=== PATIENT | male | born 1995 | race American Indian/Alaskan Native ===

== ENCOUNTER 2016-12-02 19:05 | Emergency (ER) | payer SELFPAY ==
[2016-12-02 20:43] LABS: Basophils % (Auto) 0.5 % (0.0-1.8); Eosinophils % (Auto) 0.1 % (0.0-4.3); Hemoglobin 15.5 gm/dl (11.8-15.2); Mean Corpuscular HGB Conc 33 % (32-34); Mean Corpuscular Hemoglobin 29 pg (28-32); Mean Corpuscular Volume 89 fl (84-94); Platelet Count 205 K/mm3 (140-440); Red Blood Count 5.29 M/mm3 (3.65-5.03); Red Cell Distribution Width 12.9 % (13.2-15.2); White Blood Count 7.1 K/mm3 (4.5-11.0)
[2016-12-02 21:04] LABS: Anion Gap 17 mmol/L; BUN/Creatinine Ratio 13.33; Blood Urea Nitrogen 12 mg/dL (9-20); Calcium 9.2 mg/dL (8.4-10.2); Carbon Dioxide 28 mmol/L (22-30); Chloride 102.2 mmol/L (98-107); Glucose 93 mg/dL (75-100); Potassium 4.5 mmol/L (3.6-5.0); Sodium 143 mmol/L (137-145)
[2016-12-02 22:29] LABS: Bilirubin,Urine NEG (Negative); Blood,Urine NEG (Negative); Ketones,Urine TR mg/dL (Negative); Leukocyte Esterase,Urine NEG (Negative); Mucus,Urine 3+ /HPF; Nitrite,Urine NEG (Negative); Protein,Urine <15 mg/dL mg/dL (Negative); WBC,Urine < 1.0 /HPF (0.0-6.0)
[2016-12-03] MEDS ORDERED: ZOFRAN ODT PO ONE (00:51)
[2016-12-03] MEDS ORDERED: NORCO 7.5/325 PO ONE (00:51)
--- NOTE | 2016-12-03 00:53 | Emergency Department Report ---
HPI - General Chief Complaint: Chest Pain Time Seen by Provider: 12/03/16 00:40 - HPI HPI: The patient is a 21-year-old male presents for evaluation of chest pain. The patient reports constant chest pain since 5 PM, 8/10 in severity, sharp in quality, exacerbated with movement of the upper body, and associated with palpitations. The patient denies fever, syncope, dyspnea, hemoptysis, unilateral leg swelling, recent immobilization, history of DVT or PE, recent cancer. ED Past Medical Hx - Past Medical History Hx Hypertension: No Hx CVA: No Hx Heart Attack/AMI: No Hx Congestive Heart Failure: No Hx Diabetes: No Hx Deep Vein Thrombosis: No Hx Pulmonary Embolism: No Hx GERD: No Hx Liver Disease: No Hx Renal Disease: No Hx Sickle Cell Disease: No Hx Arthritis: No Hx Headaches / Migraines: No Hx Seizures: No Hx Kidney Stones: No Hx Psychiatric Treatment: Yes (anxiety) Hx Asthma: No Hx COPD: No Hx Tuberculosis: No Hx Dementia: No Hx HIV: No - Surgical History Hx Coronary Stent: No Hx Open Heart Surgery: No Hx Pacemaker: No Hx Internal Defibrillator: No Hx Cholecystectomy: No Hx Appendectomy: No Hx Breast Surgery: No - Social History Smoking Status: Never Smoker Substance Use Type: None - Medications Home Medications: Home Medications Medication Instructions Recorded Confirmed Last Taken Type Azithromycin [Zithromax Z-AGNES] 250 mg PO DAILY #6 tab 11/02/13 Unknown Rx LORazepam [Ativan] 0.5 mg PO BID PRN #5 tab 09/19/14 Unknown Rx ALPRAZolam [Xanax TAB] 0.25 mg PO TID PRN #60 tab 09/25/14 Unknown Rx predniSONE [Deltasone] 20 mg PO QDAY #5 tab 01/18/15 Unknown Rx Cyclobenzaprine [Flexeril] 10 mg PO TID PRN #30 tablet 05/16/16 Unknown Rx Ibuprofen [Motrin 600 MG tab] 600 mg PO Q8H PRN #50 tablet 05/16/16 Unknown Rx traMADol [Ultram] 50 mg PO Q6HR PRN #20 tablet 05/16/16 Unknown Rx Cyclobenzaprine HCl [Flexeril 5 MG 5 mg PO Q8HR PRN #10 tab 12/03/16 Unknown Rx TAB] Omeprazole Magnesium [PriLOSEC Otc] 20 mg PO QDAY #14 tablet. 12/03/16 Unknown Rx ED Review of Systems ROS: Stated complaint: HEART PALPITATIONS Other details as noted in HPI Constitutional: denies: fever ENT: denies: throat or neck pain Respiratory: denies: cough, shortness of breath Cardiovascular: reports chest pain Endocrine: denies unexplained weight loss or gain Gastrointestinal: denies: abdominal pain, nausea Genitourinary: denies: dysuria Musculoskeletal: denies: leg swelling Skin: denies: rash Neurological: denies: headache Hematological/Lymphatic: denies: easy bleeding or easy bruising Psych: denies sadness or hopelessness Physical Exam - Physical Exam Vital Signs: Vital Signs 12/02/16 19:30 Temperature 97.9 F Pulse Rate 109 H Respiratory 18 Rate Blood Pressure 109/78 O2 Sat by Pulse 99 Oximetry Physical Exam: General: well-nourished, well-developed, no acute distress Head: Normocephalic, atraumatic Eyes: normal sclera ENT: Mucous membranes are pale and dry Neck: trachea midline, neck supple, No neck stiffness, no cervical adenopathy Respiratory: Breath sounds equal bilaterally, no wheezing, rales, or rhonchi Cardio: S1 and S2 present, no murmurs, rubs, gallops, capillary refill is delayed Abdomen: Normoactive bowel sounds, soft abdomen, no rigidity, no guarding or rebound tenderness Musc: No pitting edema Skin: No rash Neuro: no facial drooping, normal speech Psych: Normal affect ED Course Vital Signs 12/02/16 19:30 Temperature 97.9 F Pulse Rate 109 H Respiratory 18 Rate Blood Pressure 109/78 O2 Sat by Pulse 99 Oximetry ED Medical Decision Making - Lab Data Result diagrams: 12/02/16 20:30 12/02/16 20:30 - Medical Decision Making The patient was seen and examined by myself. The patient is placed on a panel monitor and continuous pulse ox. On initial evaluation, the patient was found to be in no distress. Evaluation orders were placed. EKG is unchanged from previous. Lab results reveal elevated RBC, hemoglobin and hematocrit, consistent with hemoconcentration and exam findings of dehydration, and otherwise labs were grossly unremarkable including 2 sets of negative troponin. The patient is given a tablet of Mcdougal for his pain. The patient was reevaluated and reported that their symptoms were markedly improved. The patient is stable for discharge with outpatient follow-up. The patient is given follow-up and return instructions. The patient expressed understanding and agreed with the plan. The patient is discharged in stable condition. Critical care attestation.: If time is entered above; I have spent that time in minutes in the direct care of this critically ill patient, excluding procedure time. ED Disposition Clinical Impression: Acute chest pain, Dehydration Disposition: DISCHARGED TO HOME OR SELFCARE Is pt being admited?: No Does the pt Need Aspirin: No Condition: Stable Instructions: Chest Pain (ED), Gastroesophageal Reflux Disease (ED), Diet for Ulcers and Gastritis (ED) Referrals: PRIMARY CARE, [Primary Care Provider] - 3-5 Days Time of Disposition: 00:52
[2016-12-03 01:26] VITALS: BP 124/75
== END 2016-12-03 01:26 | disposition home or self-care (01) ==
LOC: ED 19:05
DX: R07.9 Chest pain, unspecified (principal); E86.0 Dehydration; F41.9 Anxiety disorder, unspecified
CPT/HCPCS: 36415; 80048; 81001; 84484; 85025; 93005; 93010; Q0162

== ENCOUNTER 2017-04-28 22:01 | Emergency (ER) | payer OTHER ==
[2017-04-28 22:16] VITALS: BP 140/100
--- NOTE | 2017-04-28 23:23 | Emergency Department Report ---
ED Anxiety HPI - General Chief Complaint: Headache Stated Complaint: HEADPAIN Time Seen by Provider: 04/28/17 22:56 Source: patient Mode of arrival: Ambulatory - History of Present Illness Initial Comments: This is a 21-year-old male that presents to ED with complaint of feeling small electrical sensations that is shooting throughout the brain for the past one year. Patient stated has been diagnosed with anxiety and has been prescribed clonazepam 0.5mg daily. Patient stated has not been taking clonazepam for the past 3 days due to trying to wean off the anxiety medication. Patient stated symptoms has reoccurred every since starting medication and patient stated he is concerned. Patient denies any past medical history. Denies any allergies. Denies head trauma, headache, nausea, vomiting, loss of consciousness, blurred vision, nausea, vomiting, chest pain, shortness of breath, stiff neck, fever, chills. Patient stated he has been in bed all day yesterday and thinking a lot and these symptoms has occurred. Patient currently denies these symptoms during interview. Patient stated had been having racing thoughts that can not control. MD Complaint: other (racing thoughts) -: Gradual, year(s) (1) Symptoms: other (racing thoughts) Place: home Previous History of Same: Yes Severity: mild Quality: intermittant Provoking factors: none known Improves With: medication (clonazepam) Worsens With: nothing Associated symptoms: denies other symptoms. denies: chest pain, shortness of breath, palpitations, diaphoresis, confusion, cough, fever/chills, headaches, anorexia, malaise, nausea/vomiting, rash, seizure, syncope, weakness - Related Data Home Medications: Previous Rx's Medication Instructions Recorded Last Taken Type Azithromycin [Zithromax Z-AGNES] 250 mg PO DAILY #6 tab 11/02/13 Unknown Rx LORazepam [Ativan] 0.5 mg PO BID PRN #5 tab 09/19/14 Unknown Rx ALPRAZolam [Xanax TAB] 0.25 mg PO TID PRN #60 tab 09/25/14 Unknown Rx predniSONE [Deltasone] 20 mg PO QDAY #5 tab 01/18/15 Unknown Rx Cyclobenzaprine [Flexeril] 10 mg PO TID PRN #30 tablet 05/16/16 Unknown Rx Ibuprofen [Motrin 600 MG tab] 600 mg PO Q8H PRN #50 tablet 05/16/16 Unknown Rx traMADol [Ultram] 50 mg PO Q6HR PRN #20 tablet 05/16/16 Unknown Rx Cyclobenzaprine HCl [Flexeril 5 MG 5 mg PO Q8HR PRN #10 tab 12/03/16 Unknown Rx TAB] Omeprazole Magnesium [PriLOSEC Otc] 20 mg PO QDAY #14 tablet. 12/03/16 Unknown Rx Allergies/Adverse Reactions: Allergies Allergy/AdvReac Type Severity Reaction Status Date / Time No Known Allergies Allergy Verified 11/02/13 12:31 ED Review of Systems ROS: Stated complaint: HEADPAIN Other details as noted in HPI Constitutional: denies: chills, fever Eyes: denies: eye pain, eye discharge, vision change ENT: denies: ear pain, throat pain Respiratory: denies: cough, shortness of breath, wheezing Cardiovascular: denies: chest pain, palpitations Endocrine: no symptoms reported Gastrointestinal: denies: abdominal pain, nausea, diarrhea Genitourinary: denies: urgency, dysuria Musculoskeletal: denies: back pain, joint swelling, arthralgia Skin: denies: rash, lesions Neurological: denies: headache, weakness, paresthesias Psychiatric: denies: anxiety, depression Hematological/Lymphatic: denies: easy bleeding, easy bruising ED Past Medical Hx - Past Medical History Hx Hypertension: No Hx CVA: No Hx Heart Attack/AMI: No Hx Congestive Heart Failure: No Hx Diabetes: No Hx Deep Vein Thrombosis: No Hx Pulmonary Embolism: No Hx GERD: No Hx Liver Disease: No Hx Renal Disease: No Hx Sickle Cell Disease: No Hx Arthritis: No Hx Headaches / Migraines: No Hx Seizures: No Hx Kidney Stones: No Hx Psychiatric Treatment: Yes (anxiety) Hx Asthma: No Hx COPD: No Hx Tuberculosis: No Hx Dementia: No Hx HIV: No - Surgical History Hx Coronary Stent: No Hx Open Heart Surgery: No Hx Pacemaker: No Hx Internal Defibrillator: No Hx Cholecystectomy: No Hx Appendectomy: No Hx Breast Surgery: No - Social History Smoking Status: Never Smoker Substance Use Type: None - Medications Home Medications: Home Medications Medication Instructions Recorded Confirmed Last Taken Type Azithromycin [Zithromax Z-AGNES] 250 mg PO DAILY #6 tab 11/02/13 Unknown Rx LORazepam [Ativan] 0.5 mg PO BID PRN #5 tab 09/19/14 Unknown Rx ALPRAZolam [Xanax TAB] 0.25 mg PO TID PRN #60 tab 09/25/14 Unknown Rx predniSONE [Deltasone] 20 mg PO QDAY #5 tab 01/18/15 Unknown Rx Cyclobenzaprine [Flexeril] 10 mg PO TID PRN #30 tablet 05/16/16 Unknown Rx Ibuprofen [Motrin 600 MG tab] 600 mg PO Q8H PRN #50 tablet 05/16/16 Unknown Rx traMADol [Ultram] 50 mg PO Q6HR PRN #20 tablet 05/16/16 Unknown Rx Cyclobenzaprine HCl [Flexeril 5 MG 5 mg PO Q8HR PRN #10 tab 12/03/16 Unknown Rx TAB] Omeprazole Magnesium [PriLOSEC Otc] 20 mg PO QDAY #14 tablet. 12/03/16 Unknown Rx ED Physical Exam - General Limitations: No Limitations General appearance: alert, in no apparent distress - Head Head exam: Present: atraumatic, normocephalic, normal inspection - Eye Eye exam: Present: normal appearance, PERRL, EOMI. Absent: scleral icterus, conjunctival injection, nystagmus, periorbital swelling, periorbital tenderness Pupils: Present: normal accommodation - ENT ENT exam: Present: normal exam, normal orophraynx, mucous membranes moist, TM's normal bilaterally, normal external ear exam - Neck Neck exam: Present: normal inspection, full ROM. Absent: tenderness, meningismus, lymphadenopathy, thyromegaly - Respiratory Respiratory exam: Present: normal lung sounds bilaterally. Absent: respiratory distress, wheezes, rales, rhonchi, stridor, chest wall tenderness, accessory muscle use, decreased breath sounds, prolonged expiratory - Cardiovascular Cardiovascular Exam: Present: regular rate, normal rhythm, normal heart sounds. Absent: bradycardia, tachycardia, irregular rhythm, systolic murmur, diastolic murmur, rubs, gallop - GI/Abdominal GI/Abdominal exam: Present: soft, normal bowel sounds. Absent: distended, tenderness, guarding, rebound, rigid, diminished bowel sounds - Rectal Rectal exam: Present: deferred - Extremities Exam Extremities exam: Present: normal inspection, full ROM, normal capillary refill. Absent: tenderness, pedal edema, joint swelling, calf tenderness - Back Exam Back exam: Present: normal inspection, full ROM. Absent: tenderness, CVA tenderness (R), CVA tenderness (L), muscle spasm, paraspinal tenderness, vertebral tenderness, rash noted - Neurological Exam Neurological exam: Present: alert, oriented X3, CN II-XII intact, normal gait, reflexes normal - Expanded Neurological Exam Expanded Patient oriented to: Present: person, place, time Speech: Present: fluid speech (normal speech) Cranial nerves: EOM's Intact: Normal, Gag Reflex: Normal, Tongue Deviation: Normal, Nystagmus: Normal, Facial Sensation: Normal, Facial Palsy with Forehead Movement: Normal, Facial Palsy without Forehead Movement: Normal Cerebellar function: Finger to Nose: Normal, Heel to Floyd: Normal, Romberg: Normal Upper motor neuron: Tyree Neglect: Normal, Pronator Drift: Normal, Babinski Sign : Normal, Sensory Extinction: Normal Sensory exam: Upper Extremity Light Touch: Normal, Upper Extremity Pin Prick: Normal, Upper Extremity Temperature: Normal, UE 2 Point Discrimination: Normal, Lower Extremity Light Touch: Normal, Lower Extremity Pin Prick: Normal, Lower Extremity Temperature: Normal, LE 2 Point Discrimination: Normal Motor strength exam: RUE: 5, LUE: 5, RLE: 5, LLE: 5 DTR: bicep (R): 2+, bicep (L): 2+, tricep (R): 2+, tricep (L): 2+, knee (R): 2+ , knee (L): 2+, ankle (R): 2+, ankle (L): 2+ Best Eye Response ([place]): (4) open spontaneously Best Motor Response ([place]): (6) obeys commands Best Verbal Response ([place]): (5) oriented Margaux Total: 15 - Psychiatric Psychiatric exam: Present: normal affect, normal mood - Skin Skin exam: Present: warm, dry, intact, normal color. Absent: rash ED Course Vital Signs 04/28/17 22:13 Temperature 98.8 F Pulse Rate 88 Respiratory 18 Rate Blood Pressure 140/100 O2 Sat by Pulse 100 Oximetry - Reevaluation(s) Reevaluation #1: 04/28/17 23:24 Patient is sitting down on his cell phone with no signs of distress noted. ED Medical Decision Making - Medical Decision Making ED course; this is a 21-year-old male that presents with anxiety symptoms 1- patient was examined by myself. Negative neuro deficits. He has been having symptoms since stopping clonazepam. History of anxiety. 2- patient was instructed to follow up with her neurologist or primary care doctor in 24 hours or any symptoms such as loss of consciousness, stiff neck, fever, chills, headache, blurry vision, nausea or vomiting return to the emergency room as soon as possible. Critical care attestation.: If time is entered above; I have spent that time in minutes in the direct care of this critically ill patient, excluding procedure time. ED Disposition Clinical Impression: Anxiety Disposition: DC-01 TO HOME OR SELFCARE Is pt being admited?: No Does the pt Need Aspirin: No Condition: Stable Instructions: Anxiety (ED) Additional Instructions: follow up with your neurologist or primary care doctor in 24 hours or any symptoms such as loss of consciousness, stiff neck, fever, chills, headache, blurry vision, nausea or vomiting return to the emergency room as soon as possible. Referrals: [facility] [Outside] - 3-5 Days [facility] [Outside] - 3-5 Days LAURA BERG MD [Staff Physician] - 24 Hours WALDEMAR BAILEY JR, MD [Staff Physician] - 24 Hours PRIMARY CAREMD [Primary Care Provider] - 24 Hours Forms: Work/School Release Form(ED)
== END 2017-04-28 23:56 | disposition home or self-care (01) ==
LOC: ED 22:01
DX: F41.9 Anxiety disorder, unspecified (principal)
CPT/HCPCS: 99282

== ENCOUNTER 2017-12-10 17:47 | Emergency (ER) | payer OTHER ==
[2017-12-10 18:12] VITALS: BP 118/64
--- NOTE | 2017-12-10 19:40 | Emergency Department Report ---
Blank Doc - Documentation Documentation: Patient is a 22-year-old [place] male who presented with one day of sore throat. Brief physical exam patient has some very small shotty anterior cervical lymph nodes as well as some frontal erythema. Rapid strep will be performed
--- NOTE | 2017-12-10 21:15 | Emergency Department Report ---
HPI - General Chief Complaint: Upper Respiratory Infection Time Seen by Provider: 12/10/17 19:26 - HPI HPI: Patient is a 22-year-old Polish male who presented with one day of sore throat. Brief physical exam patient has some very small shotty anterior cervical lymph nodes as well as some frontal erythema. Rapid strep will be performed ED Past Medical Hx - Past Medical History Hx Hypertension: No Hx CVA: No Hx Heart Attack/AMI: No Hx Congestive Heart Failure: No Hx Diabetes: No Hx Deep Vein Thrombosis: No Hx Pulmonary Embolism: No Hx GERD: No Hx Liver Disease: No Hx Renal Disease: No Hx Sickle Cell Disease: No Hx Arthritis: No Hx Headaches / Migraines: No Hx Seizures: No Hx Kidney Stones: No Hx Psychiatric Treatment: Yes (anxiety) Hx Asthma: No Hx COPD: No Hx Tuberculosis: No Hx Dementia: No Hx HIV: No - Surgical History Hx Coronary Stent: No Hx Open Heart Surgery: No Hx Pacemaker: No Hx Internal Defibrillator: No Hx Cholecystectomy: No Hx Appendectomy: No Hx Breast Surgery: No - Social History Smoking Status: Never Smoker Substance Use Type: None - Medications Home Medications: Home Medications Medication Instructions Recorded Confirmed Last Taken Type Azithromycin [Zithromax Z-AGNES] 250 mg PO DAILY #6 tab 11/02/13 Unknown Rx LORazepam [Ativan] 0.5 mg PO BID PRN #5 tab 09/19/14 Unknown Rx ALPRAZolam [Xanax TAB] 0.25 mg PO TID PRN #60 tab 09/25/14 Unknown Rx predniSONE [Deltasone] 20 mg PO QDAY #5 tab 01/18/15 Unknown Rx Cyclobenzaprine [Flexeril] 10 mg PO TID PRN #30 tablet 05/16/16 Unknown Rx Ibuprofen [Motrin 600 MG tab] 600 mg PO Q8H PRN #50 tablet 05/16/16 Unknown Rx traMADol [Ultram] 50 mg PO Q6HR PRN #20 tablet 05/16/16 Unknown Rx Cyclobenzaprine HCl [Flexeril 5 MG 5 mg PO Q8HR PRN #10 tab 12/03/16 Unknown Rx TAB] Omeprazole Magnesium [PriLOSEC Otc] 20 mg PO QDAY #14 tablet. 12/03/16 Unknown Rx ED Review of Systems ROS: Stated complaint: FLU LIKE SYMPTOMS Other details as noted in HPI Physical Exam - Physical Exam Vital Signs: Vital Signs 12/10/17 18:08 Temperature 99.3 F Pulse Rate 103 H Respiratory 16 Rate Blood Pressure 118/64 O2 Sat by Pulse 100 Oximetry ED Course Vital Signs 12/10/17 18:08 Temperature 99.3 F Pulse Rate 103 H Respiratory 16 Rate Blood Pressure 118/64 O2 Sat by Pulse 100 Oximetry Critical care attestation.: If time is entered above; I have spent that time in minutes in the direct care of this critically ill patient, excluding procedure time. ED Disposition Condition: Stable Referrals: SEB VALENCIA MD [Primary Care Provider] - 3-5 Days
[2017-12-10] MEDS ORDERED: MOTRIN PO ONE (22:41)
--- NOTE | 2017-12-10 22:41 | Emergency Department Report ---
Minor Respiratory - HPI Chief Complaint: Upper Respiratory Infection Stated Complaint: FLU LIKE SYMPTOMS Time Seen by Provider: 12/10/17 19:26 Duration: Today Pain Location: Throat Severity: mild (4/10) Minor Respiratory: Yes Rhinorrhea (nasal congestion), Yes Sore Throat (denies any drooling, difficulty swallowing or swelling of tongue.), Yes Able to Tolerate Fluids, Yes Cough (dry cough), Yes Sick Contacts, Yes Fever ( chills), No Ear Pain, No Hemoptysis, No Chest Pain, No Shortness of Breath Other History: Patient reports sore throat that started today but prior to this he had nasal congestion, coughing that started about 4 days ago. He said he has nasal congestion with drainage to the back of his throat. Sore throat as for the 10 feels sore worse with swallowing. No pain without eating or swallowing. He reports chills. Denies nausea vomiting or abdominal pain. Denies any neck pain or stiffness. Denies any swelling of tongue. Reports cough and denies any shortness of breath or chest pain. Patient with history of anxiety and that seemed to be his only medical history. He said he started taking [id number] pain medication but it's not helping. ED Review of Systems ROS: Stated complaint: FLU LIKE SYMPTOMS Other details as noted in HPI Comment: All other systems reviewed and negative Constitutional: chills Eyes: denies: eye pain, eye discharge ENT: throat pain, congestion. denies: ear pain Respiratory: cough. denies: orthopnea, shortness of breath, SOB with exertion, SOB at rest, stridor, wheezing Cardiovascular: denies: chest pain, palpitations, dyspnea on exertion, edema, syncope, paroxysmal nocturnal dyspnea Gastrointestinal: denies: abdominal pain, nausea, vomiting, diarrhea Genitourinary: denies: dysuria, hematuria Musculoskeletal: denies: back pain, joint swelling, arthralgia, myalgia Skin: denies: rash Neurological: headache. denies: weakness, numbness, paresthesias, confusion, abnormal gait, vertigo ED Past Medical Hx - Past Medical History Previous Medical History?: Yes Hx Hypertension: No Hx CVA: No Hx Heart Attack/AMI: No Hx Congestive Heart Failure: No Hx Diabetes: No Hx Deep Vein Thrombosis: No Hx Pulmonary Embolism: No Hx GERD: No Hx Liver Disease: No Hx Renal Disease: No Hx Sickle Cell Disease: No Hx Arthritis: No Hx Headaches / Migraines: No Hx Seizures: No Hx Kidney Stones: No Hx Psychiatric Treatment: Yes (anxiety) Hx Asthma: No Hx COPD: No Hx Tuberculosis: No Hx Dementia: No Hx HIV: No - Surgical History Past Surgical History?: No Hx Coronary Stent: No Hx Open Heart Surgery: No Hx Pacemaker: No Hx Internal Defibrillator: No Hx Cholecystectomy: No Hx Appendectomy: No Hx Breast Surgery: No - Family History Family history: no significant - Social History Smoking Status: Never Smoker Substance Use Type: None - Medications Home Medications: Home Medications Medication Instructions Recorded Confirmed Last Taken Type Azithromycin [Zithromax Z-AGNES] 250 mg PO DAILY #6 tab 11/02/13 Unknown Rx LORazepam [Ativan] 0.5 mg PO BID PRN #5 tab 09/19/14 Unknown Rx ALPRAZolam [Xanax TAB] 0.25 mg PO TID PRN #60 tab 09/25/14 Unknown Rx predniSONE [Deltasone] 20 mg PO QDAY #5 tab 01/18/15 Unknown Rx Cyclobenzaprine [Flexeril] 10 mg PO TID PRN #30 tablet 05/16/16 Unknown Rx traMADol [Ultram] 50 mg PO Q6HR PRN #20 tablet 05/16/16 Unknown Rx Cyclobenzaprine HCl [Flexeril 5 MG 5 mg PO Q8HR PRN #10 tab 12/03/16 Unknown Rx TAB] Omeprazole Magnesium [PriLOSEC Otc] 20 mg PO QDAY #14 tablet.dr 12/03/16 Unknown Rx Cetirizine HCl [ZyrTEC] 10 mg PO QAM 15 Days #15 tab.rapdis 12/10/17 Unknown Rx Fluticasone [Flonase] 1 spray NS QDAY 15 Days #1 bottle 12/10/17 Unknown Rx Ibuprofen [Motrin 600 MG tab] 600 mg PO Q8H PRN #15 tablet 12/10/17 Unknown Rx Minor Respiratory Exam - Exam General: Vital signs noted. No distress. Alert and acting appropriately. HEENT: Yes Moist Mucous Membranes (uvula is midline, no peritonsillar abscess), Yes Rhinorrhea (nasal congestion with drainage), No Pharyngeal Erythema, No Pharyngeal Exudates, No Conjuctival Injection, No Frontal Tenderness, No Maxillary Tenderness Ear: Neither TM Bulge (bilateral TM congested), Neither TM Erythema, Neither EAC Pain, Neither EAC Discharge Neck: Yes Adenopathy (bilateral cervical, anterior lymphadenipathy), Yes Supple (no meningeal sign, no C-spine tenderness and full range of motion) Lungs: Yes Good Air Exchange (clear to auscultation bilaterally, no rhonchi wheezes or rales), Yes Cough (dry cough), No Wheezes, No Ronchi, No Stridor, No Labored Respirations, No Retractions, No Use of Accessory Muscles, No Other Abnormal Lung Sounds Heart: Yes Regular (S1, S2. Regular rate and rhythm negative murmur), No Murmur Abdomen: Yes Tenderness (non-tender to palpate in all quadrants.), Yes Normal Bowel Sounds (normal bowel sounds in all quadrants with), No Peritoneal Signs Skin: No Rash, No Edema Neurologic: Alert and oriented, no deficits. Neurological: Alert and oriented 3, GCS of 15, speech is clear. No facial droop . Gait is normal. Negative Romberg. Negative pronator drift and no motor or sensory deficit. No nystagmus Musculoskeletal: Unremarkable. Extremity: Clubbing, cyanosis or edema. +2 pulses to all extremities and no neurovascular compromise ED Course Vital Signs 12/10/17 18:08 Temperature 99.3 F Pulse Rate 103 H Respiratory 16 Rate Blood Pressure 118/64 O2 Sat by Pulse 100 Oximetry Vital Signs 12/10/1718 18 18:08 22:44 22:45 Temperature 99.3 F Pulse Rate 103 H 84 Respiratory 16 16 Rate Blood Pressure 118/64 O2 Sat by Pulse 100 Oximetry - Reevaluation(s) Reevaluation #1: 12/10/17 22:50 She given Motrin 800 mg by mouth emergency room for sore throat and headache. Discharged home with follow-up at [facility] ED Medical Decision Making - Lab Data Rapid strep negative and culture pending - Medical Decision Making ED course: Patient presented with sore throat, cough headache that has been worsening over the last day. He had symptoms for 4 days. Patient will low- grade fever at 99.3. Physical findings for upper respiratory tract infection with cough and congestion, pharyngitis and low-grade fever. I discussed the patient diagnosis and treatment plan. He was given Motrin 800 mg emergency room for pain to throat and headache. Patient does not have a primary care physician so I will refer for him to [facility] and I also told him that he needs to call his insurance company and find a primary care physician and is difficult and I'll also refer him to Dr. Kristen Maddox who is outpatient primary care. Patient discharged home with prescription for Zyrtec, Flonase and Motrin and to follow-up in 2-3 days. Patient had been here in the past for sore throat with enlarged lymph nodes and I asked him if he has a history of HIV and he reports no that he gets frequent sore throats. I discussed the patient that he needs to schedule an appointment with primary care physician to get full physical exam to include STD testing which include HIV. He was understanding and said that he will because it time for him to get a checkup . Critical care attestation.: If time is entered above; I have spent that time in minutes in the direct care of this critically ill patient, excluding procedure time. ED Disposition Clinical Impression: Upper respiratory infection with cough and congestion, Fever in adult, Acute viral syndrome Disposition: TO HOME OR SELFCARE Is pt being admited?: No Does the pt Need Aspirin: No Condition: Stable Instructions: Pharyngitis (ED), Upper Respiratory Infection (ED), Viral Syndrome (ED), Acute Cough (ED) Additional Instructions: Please increase her fluid intake Flush nostrils with saline nasal spray take antibiotic as prescribed F/U with primary care physician as instructed and please have them do STD testing on you to include HIV testing as you've been here in the past for sore throat with enlarged lymph nodes. Prescriptions: Cetirizine HCl [ZyrTEC] 10 mg PO QAM 15 Days #15 tab.rapdis Fluticasone [Flonase] 1 spray NS QDAY 15 Days #1 bottle Ibuprofen [Motrin 600 MG tab] 600 mg PO Q8H PRN #15 tablet PRN Reason: Pain Referrals: ONIEL COTE MD [Staff Physician] - 2-[address] [facility] [Outside] - 2-3 Days Forms: Work/School Release Form(ED)
== END 2017-12-10 23:05 | disposition home or self-care (01) ==
LOC: ED 17:47
DX: J06.9 Acute upper respiratory infection, unspecified (principal); B34.9 Viral infection, unspecified
CPT/HCPCS: 87116; 87430; 99283

== ENCOUNTER 2018-03-23 16:48 | Emergency (ER) | payer OTHER ==
[2018-03-23 17:06] VITALS: BP 126/84
--- NOTE | 2018-03-23 18:07 | Emergency Department Report ---
HPI - General Chief Complaint: Urogenital-Male Time Seen by Provider: 03/23/18 17:44 - HPI HPI: This is a 22-year-old AA male who presents to the emergency department with complaint of concern for STD as he says that he developed some bumps to the shaft of his penis and/or on the foreskin recently. The patient had sexual contact twice over the past few weeks and after the second episode he developed the bumps shortly afterwards. Today he also is concerned as he says there is some redness to the right upper lip where someone would have a cold sore. He denies any previous STD. He does admit to shaving his genitals as well and says that this could be part of the issue. He denies any dysuria, penile discharge. ED Past Medical Hx - Past Medical History Hx Hypertension: No Hx CVA: No Hx Heart Attack/AMI: No Hx Congestive Heart Failure: No Hx Diabetes: No Hx Deep Vein Thrombosis: No Hx Pulmonary Embolism: No Hx GERD: No Hx Liver Disease: No Hx Renal Disease: No Hx Sickle Cell Disease: No Hx Arthritis: No Hx Headaches / Migraines: No Hx Seizures: No Hx Kidney Stones: No Hx Psychiatric Treatment: Yes (anxiety) Hx Asthma: No Hx COPD: No Hx Tuberculosis: No Hx Dementia: No Hx HIV: No - Surgical History Hx Coronary Stent: No Hx Open Heart Surgery: No Hx Pacemaker: No Hx Internal Defibrillator: No Hx Cholecystectomy: No Hx Appendectomy: No Hx Breast Surgery: No - Social History Smoking Status: Never Smoker Substance Use Type: None - Medications Home Medications: Home Medications Medication Instructions Recorded Confirmed Last Taken Type Azithromycin [Zithromax Z-AGNES] 250 mg PO DAILY #6 tab 11/02/13 Unknown Rx LORazepam [Ativan] 0.5 mg PO BID PRN #5 tab 09/19/14 Unknown Rx ALPRAZolam [Xanax TAB] 0.25 mg PO TID PRN #60 tab 09/25/14 Unknown Rx predniSONE [Deltasone] 20 mg PO QDAY #5 tab 01/18/15 Unknown Rx Cyclobenzaprine [Flexeril] 10 mg PO TID PRN #30 tablet 05/16/16 Unknown Rx traMADol [Ultram] 50 mg PO Q6HR PRN #20 tablet 05/16/16 Unknown Rx Cyclobenzaprine HCl [Flexeril 5 MG 5 mg PO Q8HR PRN #10 tab 12/03/16 Unknown Rx TAB] Omeprazole Magnesium [PriLOSEC Otc] 20 mg PO QDAY #14 tablet. 12/03/16 Unknown Rx Cetirizine HCl [ZyrTEC] 10 mg PO QAM 15 Days #15 tab.rapdis 12/10/17 Unknown Rx Fluticasone [Flonase] 1 spray NS QDAY 15 Days #1 bottle 12/10/17 Unknown Rx Ibuprofen [Motrin 600 MG tab] 600 mg PO Q8H PRN #15 tablet 12/10/17 Unknown Rx Acyclovir [Zovirax] 400 mg PO TID #21 tablet 03/23/18 Unknown Rx ED Review of Systems ROS: Stated complaint: MEDICAL CLEARENCE Other details as noted in HPI Comment: All other systems reviewed and negative Constitutional: denies: chills, fever Eyes: denies: eye pain, eye discharge, vision change ENT: denies: ear pain, throat pain Respiratory: denies: cough, shortness of breath, wheezing Cardiovascular: denies: chest pain, palpitations Gastrointestinal: denies: abdominal pain, nausea, diarrhea Genitourinary: denies: urgency, dysuria Musculoskeletal: denies: back pain, joint swelling, arthralgia Skin: lesions. denies: change in color Neurological: denies: headache, weakness, paresthesias Physical Exam - Physical Exam Vital Signs: Vital Signs 03/23/18 17:01 Temperature 99 F Pulse Rate 107 H Respiratory 18 Rate Blood Pressure 126/84 O2 Sat by Pulse 100 Oximetry Physical Exam: GENERAL: The patient is well-developed well-nourished. HENT: Normocephalic. Atraumatic. Patient has moist mucous membranes. Oropharynx is clear. EYES: Extraocular motions are intact. NECK: Supple. No meningitic signs are noted. There is no adenopathy noted. CHEST/LUNGS: Clear to auscultation. There is no respiratory distress noted. HEART/CARDIOVASCULAR: Regular. There is no tachycardia. There is no murmur. ABDOMEN: There is no abdominal distention. SKIN: Skin is warm and dry. There are a few small flesh-colored bumps/papules seen to the penile shaft. They are not obviously vesicular. There is also a small area of redness to the right upper lateral lip just at the vermilion border that is nonspecific but could potentially be an early vesicular lesions/ cold sore. NEURO: The patient is awake, alert, and oriented. The patient is cooperative. The patient has no focal neurologic deficits. The patient has normal speech and gait. MUSCULOSKELETAL: There is no tenderness or deformity. There is no evidence of acute injury. ED Course Vital Signs 03/23/18 17:01 Temperature 99 F Pulse Rate 107 H Respiratory 18 Rate Blood Pressure 126/84 O2 Sat by Pulse 100 Oximetry ED Medical Decision Making - Medical Decision Making The patient has concern for possible exposure to STD and based on his description and concern it would be HSV. He has no dysuria, penile discharge. The lesions that he is concerned about have mostly resolved. The ones that he shows me very well could just be a little bit of dermatitis, folliculitis, mild allergic reaction but also could be early vesicular lesions. He also shows an area of redness to the lips that also may be nonspecific or could be angular colitis but also could be an early cold sore. Since he has been having unprotected sex and has these complaints/concerns, he'll be placed on acyclovir and he has been given a referral for the health department. - Differential Diagnosis HSV, angular chelitis, dermatitis, folliculitis Critical Care Time: No Critical care attestation.: If time is entered above; I have spent that time in minutes in the direct care of this critically ill patient, excluding procedure time. ED Disposition Clinical Impression: Concern about STD in male without diagnosis Disposition: DC-01 TO HOME OR SELFCARE Is pt being admited?: No Condition: Stable Instructions: Genital Herpes Simplex (ED), Sexually Transmitted Diseases (ED), Safe Sex (ED) Additional Instructions: He was seen today for concern for possible STD secondary to bumps on the genitals. As we discussed, based on your physical exam today, I'm unable to definitively give you a diagnosis. However we will be empirically treating you for questionable herpes simplex. You mentioned that you have good follow-up with urology and I will give you a referral for the health department. Please practice safe sex. Return to the emergency Department with any worsening of your symptoms or any acute distress. Prescriptions: Acyclovir [Zovirax] 400 mg PO TID #21 tablet Referrals: PRIMARY CAREMD [Primary Care Provider] - 3-5 Days [facility] [Outside] - 3-5 Days Time of Disposition: 18:07
== END 2018-03-23 18:18 | disposition home or self-care (01) ==
LOC: ED 16:48
DX: Z11.3 Encounter for screening for infections with a predominantly sexual mode of transmission (principal)
CPT/HCPCS: 99282

== ENCOUNTER 2018-06-08 19:42 | Emergency (ER) | payer OTHER ==
[2018-06-08 19:59] VITALS: BP 115/72
--- NOTE | 2018-06-08 22:09 | Emergency Department Report ---
ED General Adult HPI - General Chief complaint: Neck Pain/Injury Stated complaint: LYMPH NODE PAIN Time Seen by Provider: 06/08/18 22:03 Source: patient Mode of arrival: Ambulatory Limitations: No Limitations - History of Present Illness Initial comments: 22-year-old male comes to the emergency room concern for left lymph node swollen in the neck. Patient reports that it feels like it detaches and goes back. Patient denies any fever or nausea no vomiting denies any sore throat. Patient reports he just wanted to come in just in case it does it again. Patient denies any pain at this time. Severity scale (0 -10): 0 - Related Data Previous Rx's Medication Instructions Recorded Last Taken Type Azithromycin [Zithromax Z-AGNES] 250 mg PO DAILY #6 tab 11/02/13 Unknown Rx LORazepam [Ativan] 0.5 mg PO BID PRN #5 tab 09/19/14 Unknown Rx ALPRAZolam [Xanax TAB] 0.25 mg PO TID PRN #60 tab 09/25/14 Unknown Rx predniSONE [Deltasone] 20 mg PO QDAY #5 tab 01/18/15 Unknown Rx Cyclobenzaprine [Flexeril] 10 mg PO TID PRN #30 tablet 05/16/16 Unknown Rx traMADol [Ultram] 50 mg PO Q6HR PRN #20 tablet 05/16/16 Unknown Rx Cyclobenzaprine HCl [Flexeril 5 MG 5 mg PO Q8HR PRN #10 tab 12/03/16 Unknown Rx TAB] Omeprazole Magnesium [PriLOSEC Otc] 20 mg PO QDAY #14 tablet.dr 12/03/16 Unknown Rx Cetirizine HCl [ZyrTEC] 10 mg PO QAM 15 Days #15 tab.rapdis 12/10/17 Unknown Rx Fluticasone [Flonase] 1 spray NS QDAY 15 Days #1 bottle 12/10/17 Unknown Rx Ibuprofen [Motrin 600 MG tab] 600 mg PO Q8H PRN #15 tablet 12/10/17 Unknown Rx Acyclovir [Zovirax] 400 mg PO TID #21 tablet 03/23/18 Unknown Rx Allergies Allergy/AdvReac Type Severity Reaction Status Date / Time No Known Allergies Allergy Verified 03/23/18 17:01 ED Review of Systems ROS: Stated complaint: LYMPH NODE PAIN Other details as noted in HPI Comment: All other systems reviewed and negative ED Past Medical Hx - Past Medical History Hx Hypertension: No Hx CVA: No Hx Heart Attack/AMI: No Hx Congestive Heart Failure: No Hx Diabetes: No Hx Deep Vein Thrombosis: No Hx Pulmonary Embolism: No Hx GERD: No Hx Liver Disease: No Hx Renal Disease: No Hx Sickle Cell Disease: No Hx Arthritis: No Hx Headaches / Migraines: No Hx Seizures: No Hx Kidney Stones: No Hx Psychiatric Treatment: Yes (anxiety) Hx Asthma: No Hx COPD: No Hx Tuberculosis: No Hx Dementia: No Hx HIV: No - Surgical History Hx Coronary Stent: No Hx Open Heart Surgery: No Hx Pacemaker: No Hx Internal Defibrillator: No Hx Cholecystectomy: No Hx Appendectomy: No Hx Breast Surgery: No - Social History Smoking Status: Current Every Day Smoker Substance Use Type: None - Medications Home Medications: Home Medications Medication Instructions Recorded Confirmed Last Taken Type Azithromycin [Zithromax Z-AGNES] 250 mg PO DAILY #6 tab 11/02/13 Unknown Rx LORazepam [Ativan] 0.5 mg PO BID PRN #5 tab 09/19/14 Unknown Rx ALPRAZolam [Xanax TAB] 0.25 mg PO TID PRN #60 tab 09/25/14 Unknown Rx predniSONE [Deltasone] 20 mg PO QDAY #5 tab 01/18/15 Unknown Rx Cyclobenzaprine [Flexeril] 10 mg PO TID PRN #30 tablet 05/16/16 Unknown Rx traMADol [Ultram] 50 mg PO Q6HR PRN #20 tablet 05/16/16 Unknown Rx Cyclobenzaprine HCl [Flexeril 5 MG 5 mg PO Q8HR PRN #10 tab 12/03/16 Unknown Rx TAB] Omeprazole Magnesium [PriLOSEC Otc] 20 mg PO QDAY #14 tablet.dr 12/03/16 Unknown Rx Cetirizine HCl [ZyrTEC] 10 mg PO QAM 15 Days #15 tab.rapdis 12/10/17 Unknown Rx Fluticasone [Flonase] 1 spray NS QDAY 15 Days #1 bottle 12/10/17 Unknown Rx Ibuprofen [Motrin 600 MG tab] 600 mg PO Q8H PRN #15 tablet 12/10/17 Unknown Rx Acyclovir [Zovirax] 400 mg PO TID #21 tablet 03/23/18 Unknown Rx ED Physical Exam - General Limitations: No Limitations - Eye Eye exam: Present: EOMI - ENT ENT exam: Present: normal orophraynx, mucous membranes moist - Neck Neck exam: Present: full ROM. Absent: tenderness, lymphadenopathy, thyromegaly - Neurological Exam Neurological exam: Present: alert, oriented X3 - Psychiatric Psychiatric exam: Present: normal affect, normal mood - Skin Skin exam: Present: warm, dry, intact, normal color. Absent: rash ED Course Vital Signs 06/08/18 19:52 Temperature 98.2 F Pulse Rate 86 Respiratory 18 Rate Blood Pressure 115/72 O2 Sat by Pulse 99 Oximetry ED Medical Decision Making - Medical Decision Making Patient has been evaluated by this provider in fast track. Patient has a normal exam. Patient denies any pain no sore throat no fever. Discussed the patient and he should follow up with [facility] if this happens again. Reassured patient that his exam was negative that he has no fever no chills no sore throat. Patient verbalized understanding Critical care attestation.: If time is entered above; I have spent that time in minutes in the direct care of this critically ill patient, excluding procedure time. ED Disposition Clinical Impression: Lymphadenopathy, Physically well but worried Disposition: DC-01 TO HOME OR SELFCARE Is pt being admited?: No Does the pt Need Aspirin: No Condition: Stable Additional Instructions: If you have any further concerns please follow-up with [facility]. Referrals: PRIMARY CAREMD [Primary Care Provider] - 3-5 Days [facility] [Provider Group] - 3-5 Days
== END 2018-06-08 22:15 | disposition home or self-care (01) ==
LOC: ED 19:42
DX: R59.1 Generalized enlarged lymph nodes (principal); F41.9 Anxiety disorder, unspecified; F17.200 Nicotine dependence, unspecified, uncomplicated
CPT/HCPCS: 99282

== ENCOUNTER 2018-07-08 02:44 | Emergency (ER) | payer OTHER ==
[2018-07-08 03:32] VITALS: BP 107/62
[2018-07-08] MEDS ORDERED: MOTRIN PO ONE (03:49)
[2018-07-08 04:16] LABS: Basophils % (Auto) 0.4 % (0.0-1.8); Eosinophils % (Auto) 0.3 % (0.0-4.3); Hematocrit 43.7 % (35.5-45.6); Hemoglobin 14.8 gm/dl (11.8-15.2); Lymphocytes # (Auto) 1.3 K/mm3 (1.2-5.4); Mean Corpuscular HGB Conc 34 % (32-34); Mean Corpuscular Hemoglobin 30 pg (28-32); Mean Corpuscular Volume 87 fl (84-94); Monocytes # (Auto) 0.8 K/mm3 (0.0-0.8); Monocytes % (Auto) 15.8 % (0.0-7.3); Platelet Count 191 K/mm3 (140-440)
[2018-07-08 04:31] LABS: BUN/Creatinine Ratio 11; Blood Urea Nitrogen 9 mg/dL (9-20); Calcium 8.9 mg/dL (8.4-10.2); Hemolysis Index 44
== END 2018-07-08 07:00 | disposition left against medical advice (07) ==
LOC: ED 02:44
DX: R07.89 Other chest pain (principal); Z53.21 Procedure and treatment not carried out due to patient leaving prior to being seen by health care provider
CPT/HCPCS: 36415; 80048; 84484; 85025; 93005; 93010

== ENCOUNTER 2018-10-23 04:03 | Emergency (ER) | payer OTHER ==
[2018-10-23 04:17] VITALS: BP 126/78
--- NOTE | 2018-10-23 06:10 | Emergency Department Report ---
ED Anxiety HPI - General Chief Complaint: Dizziness Stated Complaint: DIZZINESS,NAUSEA,ANXIETY, Time Seen by Provider: 10/23/18 06:01 Source: patient Mode of arrival: Ambulatory - History of Present Illness Initial Comments: 22-year-old -[place] male comes in reporting that he has been having anxiety and has decrease in appetite 1 day. Patient denies any pain. Patient was seen here on 10/21/[address] larui phillips. Patient was prescribed Reglan and Benadryl and steroids but has not picked up his prescription. Patient does have a primary care doctor Dr. Simons has not followed up with him. He denies any suicidal or homicidal ideation. Patient is here accompanied with a friend. Patient denies any nausea vomiting dizziness. MD Complaint: anxiety, heart racing -: days(s) (1) Previous History of Same: Yes Severity: mild Associated symptoms: anorexia. denies: chest pain, shortness of breath, palpitations, diaphoresis, cough (decrease in appetite), fever/chills - Related Data Home Medications: Previous Rx's Medication Instructions Recorded Last Taken Type Azithromycin [Zithromax Z-AGNES] 250 mg PO DAILY #6 tab 11/02/13 Unknown Rx LORazepam [Ativan] 0.5 mg PO BID PRN #5 tab 09/19/14 Unknown Rx ALPRAZolam [Xanax TAB] 0.25 mg PO TID PRN #60 tab 09/25/14 Unknown Rx predniSONE [Deltasone] 20 mg PO QDAY #5 tab 01/18/15 Unknown Rx Cyclobenzaprine [Flexeril] 10 mg PO TID PRN #30 tablet 05/16/16 Unknown Rx traMADol [Ultram] 50 mg PO Q6HR PRN #20 tablet 05/16/16 Unknown Rx Cyclobenzaprine HCl [Flexeril 5 MG 5 mg PO Q8HR PRN #10 tab 12/03/16 Unknown Rx TAB] Omeprazole Magnesium [PriLOSEC Otc] 20 mg PO QDAY #14 tablet. 12/03/16 Unknown Rx Cetirizine HCl [ZyrTEC] 10 mg PO QAM 15 Days #15 tab.rapdis 12/10/17 Unknown Rx Fluticasone [Flonase] 1 spray NS QDAY 15 Days #1 bottle 12/10/17 Unknown Rx Ibuprofen [Motrin 600 MG tab] 600 mg PO Q8H PRN #15 tablet 12/10/17 Unknown Rx Acyclovir [Zovirax] 400 mg PO TID #21 tablet 03/23/18 Unknown Rx EPINEPHrine [Epipen 2-Agnes] 0.3 mg IM PRN PRN #1 kit 10/21/18 Unknown Rx Metoclopramide [Reglan] 10 mg PO ACHS 7 Days #28 tablet 10/21/18 Unknown Rx diphenhydrAMINE [Benadryl CAP] 25 mg PO Q6HR 7 Days #28 capsule 10/21/18 Unknown Rx predniSONE [Deltasone] 40 mg PO QDAY 5 Days #10 tab 10/21/18 Unknown Rx hydrOXYzine HCl [Hydroxyzine HCl] 25 mg PO Q6H PRN #20 tablet 10/23/18 Unknown Rx Allergies/Adverse Reactions: Allergies Allergy/AdvReac Type Severity Reaction Status Date / Time No Known Allergies Allergy Verified 03/23/18 17:01 ED Review of Systems ROS: Stated complaint: DIZZINESS,NAUSEA,ANXIETY, Other details as noted in HPI Comment: All other systems reviewed and negative Constitutional: denies: chills, fever Gastrointestinal: denies: abdominal pain, nausea, diarrhea Neurological: denies: headache, weakness, paresthesias Psychiatric: anxiety. denies: auditory hallucinations, visual hallucinations, homicidal thoughts, suicidal thoughts ED Past Medical Hx - Past Medical History Previous Medical History?: Yes Hx Hypertension: No Hx CVA: No Hx Heart Attack/AMI: No Hx Congestive Heart Failure: No Hx Diabetes: No Hx Deep Vein Thrombosis: No Hx Pulmonary Embolism: No Hx GERD: No Hx Liver Disease: No Hx Renal Disease: No Hx Sickle Cell Disease: No Hx Arthritis: No Hx Headaches / Migraines: No Hx Seizures: No Hx Kidney Stones: No Hx Psychiatric Treatment: Yes (anxiety) Hx Asthma: No Hx COPD: No Hx Tuberculosis: No Hx Dementia: No Hx HIV: No Additional medical history: anxiety - Surgical History Past Surgical History?: No Hx Coronary Stent: No Hx Open Heart Surgery: No Hx Pacemaker: No Hx Internal Defibrillator: No Hx Cholecystectomy: No Hx Appendectomy: No Hx Breast Surgery: No - Social History Smoking Status: Former Smoker Substance Use Type: None - Medications Home Medications: Home Medications Medication Instructions Recorded Confirmed Last Taken Type Azithromycin [Zithromax Z-AGNES] 250 mg PO DAILY #6 tab 11/02/13 Unknown Rx LORazepam [Ativan] 0.5 mg PO BID PRN #5 tab 09/19/14 Unknown Rx ALPRAZolam [Xanax TAB] 0.25 mg PO TID PRN #60 tab 09/25/14 Unknown Rx predniSONE [Deltasone] 20 mg PO QDAY #5 tab 01/18/15 Unknown Rx Cyclobenzaprine [Flexeril] 10 mg PO TID PRN #30 tablet 05/16/16 Unknown Rx traMADol [Ultram] 50 mg PO Q6HR PRN #20 tablet 05/16/16 Unknown Rx Cyclobenzaprine HCl [Flexeril 5 MG 5 mg PO Q8HR PRN #10 tab 12/03/16 Unknown Rx TAB] Omeprazole Magnesium [PriLOSEC Otc] 20 mg PO QDAY #14 tablet.dr 12/03/16 Unknown Rx Cetirizine HCl [ZyrTEC] 10 mg PO QAM 15 Days #15 tab.rapdis 12/10/17 Unknown Rx Fluticasone [Flonase] 1 spray NS QDAY 15 Days #1 bottle 12/10/17 Unknown Rx Ibuprofen [Motrin 600 MG tab] 600 mg PO Q8H PRN #15 tablet 12/10/17 Unknown Rx Acyclovir [Zovirax] 400 mg PO TID #21 tablet 03/23/18 Unknown Rx EPINEPHrine [Epipen 2-Agnes] 0.3 mg IM PRN PRN #1 kit 10/21/18 Unknown Rx Metoclopramide [Reglan] 10 mg PO ACHS 7 Days #28 tablet 10/21/18 Unknown Rx diphenhydrAMINE [Benadryl CAP] 25 mg PO Q6HR 7 Days #28 capsule 10/21/18 Unknown Rx predniSONE [Deltasone] 40 mg PO QDAY 5 Days #10 tab 10/21/18 Unknown Rx hydrOXYzine HCl [Hydroxyzine HCl] 25 mg PO Q6H PRN #20 tablet 10/23/18 Unknown Rx ED Physical Exam - General Limitations: No Limitations General appearance: alert, in no apparent distress - Head Head exam: Present: atraumatic, normocephalic - Eye Eye exam: Present: EOMI - ENT ENT exam: Present: mucous membranes moist - Respiratory Respiratory exam: Present: normal lung sounds bilaterally. Absent: respiratory distress - Cardiovascular Cardiovascular Exam: Present: regular rate, normal rhythm. Absent: systolic murmur, diastolic murmur, rubs, gallop - Neurological Exam Neurological exam: Present: alert, oriented X3 - Psychiatric Psychiatric exam: Present: normal affect, normal mood, flat affect. Absent: depressed, agitated, anxious, manic, homicidal ideation, suicidal ideation - Skin Skin exam: Present: warm, dry, intact, normal color. Absent: rash ED Course Vital Signs 10/23/18 04:10 Temperature 98.8 F Pulse Rate 100 H Respiratory 20 Rate Blood Pressure 126/78 O2 Sat by Pulse 97 Oximetry ED Medical Decision Making - Medical Decision Making Patient has been evaluated by this provider in fast track. Patient comes in suffer from anxiety. Discussed the patient will place him on Atarax 25 mg every 6 hours when necessary. Discussed the patient is to follow-up with his primary care provider by calling them this morning to make an appointment. Discussed the patient to fill his prescription that he was given on 10/21/2018. Patient verbalized understanding Critical care attestation.: If time is entered above; I have spent that time in minutes in the direct care of this critically ill patient, excluding procedure time. ED Disposition Clinical Impression: Anxiety Disposition: DC-01 TO HOME OR SELFCARE Is pt being admited?: No Does the pt Need Aspirin: No Condition: Stable Instructions: Anxiety (ED) Additional Instructions: Please take medication as prescribed for anxiety. It is very important for you to follow up with her primary care provider. Prescriptions: hydrOXYzine HCl [Hydroxyzine HCl] 25 mg PO Q6H PRN #20 tablet PRN Reason: Anxiety Referrals: RENETTA CORTEZ MD [Staff Physician] - 3-5 Days Forms: Work/School Release Form(ED), Accompanied Note
== END 2018-10-23 06:23 | disposition home or self-care (01) ==
LOC: ED 04:03
DX: F41.9 Anxiety disorder, unspecified (principal); R63.0 Anorexia
CPT/HCPCS: 93005; 93010; 99282

== ENCOUNTER 2019-07-17 01:47 | Emergency (ER) | payer OTHER ==
[2019-07-17 02:01] VITALS: BP 117/66
--- NOTE | 2019-07-17 03:20 | Emergency Department Report ---
ED General Adult HPI - General Chief complaint: Medical Clearance Stated complaint: ANXIETY Time Seen by Provider: 07/17/19 02:56 Source: patient Mode of arrival: Ambulatory Limitations: No Limitations - History of Present Illness Initial comments: Patient presents to ED requesting note for work that states he has a diagnosis of anxiety. - Related Data Previous Rx's Medication Instructions Recorded Last Taken Type Azithromycin [Zithromax Z-AGNES] 250 mg PO DAILY #6 tab 11/02/13 Unknown Rx LORazepam [Ativan] 0.5 mg PO BID PRN #5 tab 09/19/14 Unknown Rx ALPRAZolam [Xanax TAB] 0.25 mg PO TID PRN #60 tab 09/25/14 Unknown Rx predniSONE [Deltasone] 20 mg PO QDAY #5 tab 01/18/15 Unknown Rx Cyclobenzaprine [Flexeril] 10 mg PO TID PRN #30 tablet 05/16/16 Unknown Rx traMADol [Ultram] 50 mg PO Q6HR PRN #20 tablet 05/16/16 Unknown Rx Cyclobenzaprine HCl [Flexeril 5 MG 5 mg PO Q8HR PRN #10 tab 12/03/16 Unknown Rx TAB] Omeprazole Magnesium [PriLOSEC Otc] 20 mg PO QDAY #14 tablet.dr 12/03/16 Unknown Rx Cetirizine HCl [ZyrTEC] 10 mg PO QAM 15 Days #15 tab.rapdis 12/10/17 Unknown Rx Fluticasone [Flonase] 1 spray NS QDAY 15 Days #1 bottle 12/10/17 Unknown Rx Ibuprofen [Motrin 600 MG tab] 600 mg PO Q8H PRN #15 tablet 12/10/17 Unknown Rx Acyclovir [Zovirax] 400 mg PO TID #21 tablet 03/23/18 Unknown Rx EPINEPHrine [Epipen 2-Agnes] 0.3 mg IM PRN PRN #1 kit 10/21/18 Unknown Rx Metoclopramide [Reglan] 10 mg PO ACHS 7 Days #28 tablet 10/21/18 Unknown Rx diphenhydrAMINE [Benadryl CAP] 25 mg PO Q6HR 7 Days #28 capsule 10/21/18 Unknown Rx predniSONE [Deltasone] 40 mg PO QDAY 5 Days #10 tab 10/21/18 Unknown Rx hydrOXYzine HCl [Hydroxyzine HCl] 25 mg PO Q6H PRN #20 tablet 10/23/18 Unknown Rx Allergies Allergy/AdvReac Type Severity Reaction Status Date / Time No Known Allergies Allergy Verified 03/23/18 17:01 ED Review of Systems ROS: Stated complaint: ANXIETY Other details as noted in HPI Eyes: eye pain Respiratory: denies: shortness of breath Cardiovascular: denies: chest pain ED Past Medical Hx - Past Medical History Previous Medical History?: Yes Hx Hypertension: No Hx CVA: No Hx Heart Attack/AMI: No Hx Congestive Heart Failure: No Hx Diabetes: No Hx Deep Vein Thrombosis: No Hx Pulmonary Embolism: No Hx GERD: No Hx Liver Disease: No Hx Renal Disease: No Hx Sickle Cell Disease: No Hx Arthritis: No Hx Headaches / Migraines: No Hx Seizures: No Hx Kidney Stones: No Hx Psychiatric Treatment: Yes (anxiety) Hx Asthma: No Hx COPD: No Hx Tuberculosis: No Hx Dementia: No Hx HIV: No Additional medical history: anxiety - Surgical History Past Surgical History?: No Hx Coronary Stent: No Hx Open Heart Surgery: No Hx Pacemaker: No Hx Internal Defibrillator: No Hx Cholecystectomy: No Hx Appendectomy: No Hx Breast Surgery: No - Social History Smoking Status: Never Smoker Substance Use Type: None - Medications Home Medications: Home Medications Medication Instructions Recorded Confirmed Last Taken Type Azithromycin [Zithromax Z-AGNES] 250 mg PO DAILY #6 tab 11/02/13 Unknown Rx LORazepam [Ativan] 0.5 mg PO BID PRN #5 tab 09/19/14 Unknown Rx ALPRAZolam [Xanax TAB] 0.25 mg PO TID PRN #60 tab 09/25/14 Unknown Rx predniSONE [Deltasone] 20 mg PO QDAY #5 tab 01/18/15 Unknown Rx Cyclobenzaprine [Flexeril] 10 mg PO TID PRN #30 tablet 05/16/16 Unknown Rx traMADol [Ultram] 50 mg PO Q6HR PRN #20 tablet 05/16/16 Unknown Rx Cyclobenzaprine HCl [Flexeril 5 MG 5 mg PO Q8HR PRN #10 tab 12/03/16 Unknown Rx TAB] Omeprazole Magnesium [PriLOSEC Otc] 20 mg PO QDAY #14 12/03/16 Unknown Rx Cetirizine HCl [ZyrTEC] 10 mg PO QAM 15 Days #15 tab.rapdis 12/10/17 Unknown Rx Fluticasone [Flonase] 1 spray NS QDAY 15 Days #1 bottle 12/10/17 Unknown Rx Ibuprofen [Motrin 600 MG tab] 600 mg PO Q8H PRN #15 tablet 12/10/17 Unknown Rx Acyclovir [Zovirax] 400 mg PO TID #21 tablet 03/23/18 Unknown Rx EPINEPHrine [Epipen 2-Agnes] 0.3 mg IM PRN PRN #1 kit 10/21/18 Unknown Rx Metoclopramide [Reglan] 10 mg PO ACHS 7 Days #28 tablet 10/21/18 Unknown Rx diphenhydrAMINE [Benadryl CAP] 25 mg PO Q6HR 7 Days #28 capsule 10/21/18 Unknown Rx predniSONE [Deltasone] 40 mg PO QDAY 5 Days #10 tab 10/21/18 Unknown Rx hydrOXYzine HCl [Hydroxyzine HCl] 25 mg PO Q6H PRN #20 tablet 10/23/18 Unknown Rx ED Physical Exam - General Limitations: No Limitations General appearance: alert, in no apparent distress - Head Head exam: Present: atraumatic, normocephalic - Eye Eye exam: Present: normal appearance, PERRL, EOMI - ENT ENT exam: Present: mucous membranes moist - Neck Neck exam: Present: normal inspection - Respiratory Respiratory exam: Present: normal lung sounds bilaterally. Absent: respiratory distress - Cardiovascular Cardiovascular Exam: Present: regular rate, normal rhythm - GI/Abdominal GI/Abdominal exam: Absent: distended - Extremities Exam Extremities exam: Present: normal inspection - Neurological Exam Neurological exam: Present: alert, oriented X3 - Psychiatric Psychiatric exam: Present: normal affect, normal mood. Absent: anxious - Skin Skin exam: Present: warm, dry, intact, normal color ED Course Vital Signs 07/17/19 07/17/19 01:50 03:05 Temperature 98.6 F 98.6 F Pulse Rate 101 H 100 H Respiratory 18 18 Rate Blood Pressure 117/66 Blood Pressure 117/66 [Left] O2 Sat by Pulse 99 100 Oximetry Critical care attestation.: If time is entered above; I have spent that time in minutes in the direct care of this critically ill patient, excluding procedure time. ED Disposition Clinical Impression: Encounter for medical screening examination Disposition: DC-01 TO HOME OR SELFCARE Is pt being admited?: No Condition: Stable Referrals: [facility] [Provider Group] - 3-5 Days Time of Disposition: 03:19
== END 2019-07-17 03:30 | disposition home or self-care (01) ==
LOC: ED 01:47
DX: F41.9 Anxiety disorder, unspecified (principal); Z79.899 Other long term (current) drug therapy

== ENCOUNTER 2020-11-03 00:43 | Emergency (ER) | payer SELFPAY ==
[2020-11-03] MEDS ORDERED: SODIUM CHLORIDE 0.9% 1000 ML 1,000 ML IV ONE (01:12)
[2020-11-03] MEDS ORDERED: LORazepam 2 MG/ML VIAL IV ONE (01:12)
--- NOTE | 2020-11-03 01:15 | Emergency Department Report ---
HPI - General Chief Complaint: Altered Mental Status Time Seen by Provider: 11/03/20 01:10 - HPI HPI: This is a 24-year-old -[place] male presents to the emergency department with an adverse reaction after he ingested 2 marijuana cookies this evening. Patient was brought in by a friend and appeared altered and slightly combative. The patient is able to tell me about his ingestion. He says that he has never ingested edibles previously. He has a past medical history of anxiety and panic attacks. The patient says "I am trying to concentrate so I do not ." He denies any fever, headache, chest pain, shortness of breath, nausea, vomiting. He says that there were others who also ingested the same edibles this evening but did not have a similar reaction. ED Past Medical Hx - Past Medical History Previous Medical History?: Yes Hx Hypertension: No Hx CVA: No Hx Heart Attack/AMI: No Hx Congestive Heart Failure: No Hx Diabetes: No Hx Deep Vein Thrombosis: No Hx Pulmonary Embolism: No Hx GERD: No Hx Liver Disease: No Hx Renal Disease: No Hx Sickle Cell Disease: No Hx Arthritis: No Hx Headaches / Migraines: No Hx Seizures: No Hx Kidney Stones: No Hx Psychiatric Treatment: Yes (anxiety, Panic Attack) Hx Asthma: No Hx COPD: No Hx Tuberculosis: No Hx Dementia: No Hx HIV: No Additional medical history: anxiety - Surgical History Past Surgical History?: No Hx Coronary Stent: No Hx Open Heart Surgery: No Hx Pacemaker: No Hx Internal Defibrillator: No Hx Cholecystectomy: No Hx Appendectomy: No Hx Breast Surgery: No - Social History Smoking Status: Current Some Day Smoker Substance Use Type: Marijuana - Medications Home Medications: Home Medications Medication Instructions Recorded Confirmed Last Taken Type Azithromycin [Zithromax Z-AGNES] 250 mg PO DAILY #6 tab 11/02/13 Unknown Rx LORazepam [Ativan] 0.5 mg PO BID PRN #5 tab 09/19/14 Unknown Rx ALPRAZolam [Xanax TAB] 0.25 mg PO TID PRN #60 tab 09/25/14 Unknown Rx predniSONE [Deltasone] 20 mg PO QDAY #5 tab 01/18/15 Unknown Rx Cyclobenzaprine [Flexeril] 10 mg PO TID PRN #30 tablet 05/16/16 Unknown Rx traMADoL [Ultram] 50 mg PO Q6HR PRN #20 tablet 05/16/16 Unknown Rx Cyclobenzaprine HCl [Flexeril 5 MG 5 mg PO Q8HR PRN #10 tab 12/03/16 Unknown Rx TAB] Omeprazole Magnesium [PriLOSEC Otc] 20 mg PO QDAY #14 tablet.dr 12/03/16 Unknown Rx Cetirizine HCl [ZyrTEC] 10 mg PO QAM 15 Days #15 tab.rapdis 12/10/17 Unknown Rx Fluticasone [Flonase] 1 spray NS QDAY 15 Days #1 bottle 12/10/17 Unknown Rx Ibuprofen [Motrin 600 MG tab] 600 mg PO Q8H PRN #15 tablet 12/10/17 Unknown Rx Acyclovir [Zovirax] 400 mg PO TID #21 tablet 03/23/18 Unknown Rx EPINEPHrine [Epipen 2-Agnes] 0.3 mg IM PRN PRN #1 kit 10/21/18 Unknown Rx Metoclopramide [Reglan] 10 mg PO ACHS 7 Days #28 tablet 10/21/18 Unknown Rx diphenhydrAMINE [Benadryl CAP] 25 mg PO Q6HR 7 Days #28 capsule 10/21/18 Unknown Rx predniSONE [Deltasone] 40 mg PO QDAY 5 Days #10 tab 10/21/18 Unknown Rx hydrOXYzine HCL [Hydroxyzine HCl] 25 mg PO Q6H PRN #20 tablet 10/23/18 Unknown Rx ED Review of Systems ROS: Stated complaint: DRUG USE Other details as noted in HPI Comment: All other systems reviewed and negative Constitutional: denies: chills, fever Eyes: denies: eye pain, vision change ENT: denies: ear pain, throat pain Respiratory: denies: cough, shortness of breath Cardiovascular: palpitations. denies: chest pain Gastrointestinal: denies: abdominal pain, vomiting Genitourinary: denies: dysuria, discharge Musculoskeletal: denies: back pain, arthralgia Skin: denies: rash, lesions Neurological: denies: headache, weakness Physical Exam - Physical Exam Vital Signs: Vital Signs 11/03/20 00:51 Temperature 97.9 F Pulse Rate 129 H Respiratory 18 Rate Blood Pressure 125/78 O2 Sat by Pulse 96 Oximetry Physical Exam: GENERAL: The patient is well-developed well-nourished. HENT: Normocephalic. Atraumatic. Patient has moist mucous membranes. EYES: Extraocular motions are intact. Pupils equal reactive to light bilaterally. NECK: Supple. Trachea is midline. CHEST/LUNGS: Clear to auscultation. There is no respiratory distress noted. HEART/CARDIOVASCULAR: Regular. There is no tachycardia. There is no murmur. ABDOMEN: Abdomen is soft, nontender. Patient has normal bowel sounds. There is no abdominal distention. SKIN: Skin is warm and dry. NEURO: Patient is awake but confused and anxious. Cranial nerves II through XII grossly intact. No focal or lateralizing deficits. MUSCULOSKELETAL: There is no tenderness or deformity. There is no limitation range of motion. ED Course Vital Signs 11/03/20 00:51 Temperature 97.9 F Pulse Rate 129 H Respiratory 18 Rate Blood Pressure 125/78 O2 Sat by Pulse 96 Oximetry - Reevaluation(s) Reevaluation #1: 11/03/20 06:08 The patient has been reevaluated multiple times and is greatly improved. He is oriented to person, place, time, AAO x3. The patient is calm and appropriate. He still appears intoxicated from the marijuana ingestion and is resting comfortably. ED Medical Decision Making - Lab Data Result diagrams: 11/03/20 01:17 11/03/20 01:17 Lab Results 11/03/20 11/03/20 11/03/20 Range/Units 01:17 01:17 01:17 WBC 5.2 (4.5-11.0) K/mm3 RBC 4.97 (3.65-5.03) M/mm3 Hgb 14.4 (11.8-15.2) gm/dl Hct 43.6 (35.5-45.6) % MCV 88 (84-94) fl MCH 29 (28-32) pg MCHC 33 (32-34) % RDW 13.4 (13.2-15.2) % Plt Count 209 (140-440) K/mm3 Lymph % (Auto) 29.1 (13.4-35.0) % [place] % (Auto) 8.2 H (0.0-7.3) % Eos % (Auto) 0.3 (0.0-4.3) % Baso % (Auto) 0.6 (0.0-1.8) % Lymph # (Auto) 1.5 (1.2-5.4) K/mm3 [place] # (Auto) 0.4 (0.0-0.8) K/mm3 Eos # (Auto) 0.0 (0.0-0.4) K/mm3 Baso # (Auto) 0.0 (0.0-0.1) K/mm3 Seg Neutrophils % 61.8 (40.0-70.0) % Seg Neutrophils # 3.2 (1.8-7.7) K/mm3 Sodium 138 (137-145) mmol/L Potassium 3.5 L (3.6-5.0) mmol/L Chloride 104.2 (98-107) mmol/L Carbon Dioxide 21 L (22-30) mmol/L Anion Gap 16 mmol/L BUN 12 (9-20) mg/dL Creatinine 0.8 (0.8-1.3) mg/dL Estimated GFR > 60 ml/min BUN/Creatinine Ratio 15 % Glucose 179 H (75-100) mg/dL Calcium 8.5 (8.4-10.2) mg/dL Total Bilirubin 0.30 (0.1-1.2) mg/dL AST 18 (5-40) units/L ALT 12 (7-56) units/L Alkaline Phosphatase 99 (35-129) units/L Total Protein 6.6 (6.3-8.2) g/dL Albumin 4.2 (3.9-5) g/dL Albumin/Globulin Ratio 1.8 % Urine Color (Yellow) Urine Turbidity (Clear) Urine pH (5.0-7.0) Ur Specific [place] (1.003-1.030) Urine Protein (Negative) mg/dL Urine Glucose (UA) (Negative) mg/dL Urine Ketones (Negative) mg/dL Urine Blood (Negative) Urine Nitrite (Negative) Urine Bilirubin (Negative) Urine Urobilinogen (<2.0) mg/dL Ur Leukocyte Esterase (Negative) Urine WBC (Auto) (0.0-6.0) /HPF Urine RBC (Auto) (0.0-6.0) /HPF Urine Mucus /HPF Salicylates < 0.3 L (2.8-20.0) mg/dL Urine Opiates Screen Urine Methadone Screen Acetaminophen (10.0-30.0) ug/mL Ur Barbiturates Screen Ur Phencyclidine Scrn Ur Amphetamines Screen U Benzodiazepines Scrn Urine Cocaine Screen U Marijuana (THC) Screen Drugs of Abuse Note Plasma/Serum Alcohol (0-0.07) % 11/03/20 11/03/20 11/03/20 Range/Units 01:17 01:17 01:50 WBC (4.5-11.0) K/mm3 RBC (3.65-5.03) M/mm3 Hgb (11.8-15.2) gm/dl Hct (35.5-45.6) % MCV (84-94) fl MCH (28-32) pg MCHC (32-34) % RDW (13.2-15.2) % Plt Count (140-440) K/mm3 Lymph % (Auto) (13.4-35.0) % [place] % (Auto) (0.0-7.3) % Eos % (Auto) (0.0-4.3) % Baso % (Auto) (0.0-1.8) % Lymph # (Auto) (1.2-5.4) K/mm3 [place] # (Auto) (0.0-0.8) K/mm3 Eos # (Auto) (0.0-0.4) K/mm3 Baso # (Auto) (0.0-0.1) K/mm3 Seg Neutrophils % (40.0-70.0) % Seg Neutrophils # (1.8-7.7) K/mm3 Sodium (137-145) mmol/L Potassium (3.6-5.0) mmol/L Chloride (98-107) mmol/L Carbon Dioxide (22-30) mmol/L Anion Gap mmol/L BUN (9-20) mg/dL Creatinine (0.8-1.3) mg/dL Estimated GFR ml/min BUN/Creatinine Ratio % Glucose (75-100) mg/dL Calcium (8.4-10.2) mg/dL Total Bilirubin (0.1-1.2) mg/dL AST (5-40) units/L ALT (7-56) units/L Alkaline Phosphatase (35-129) units/L Total Protein (6.3-8.2) g/dL Albumin (3.9-5) g/dL Albumin/Globulin Ratio % Urine Color Straw (Yellow) Urine Turbidity Clear (Clear) Urine pH 5.0 (5.0-7.0) Ur Specific [place] 1.009 (1.003-1.030) Urine Protein <15 mg/dl (Negative) mg/dL Urine Glucose (UA) Neg (Negative) mg/dL Urine Ketones Neg (Negative) mg/dL Urine Blood Neg (Negative) Urine Nitrite Neg (Negative) Urine Bilirubin Neg (Negative) Urine Urobilinogen < 2.0 (<2.0) mg/dL Ur Leukocyte Esterase Neg (Negative) Urine WBC (Auto) 0.0 (0.0-6.0) /HPF Urine RBC (Auto) < 1.0 (0.0-6.0) /HPF Urine Mucus Few /HPF Salicylates (2.8-20.0) mg/dL Urine Opiates Screen Urine Methadone Screen Acetaminophen 5.0 L (10.0-30.0) ug/mL Ur Barbiturates Screen Ur Phencyclidine Scrn Ur Amphetamines Screen U Benzodiazepines Scrn Urine Cocaine Screen U Marijuana (THC) Screen Drugs of Abuse Note Plasma/Serum Alcohol < 0.01 (0-0.07) % 11/03/20 Range/Units 01:50 WBC (4.5-11.0) K/mm3 RBC (3.65-5.03) M/mm3 Hgb (11.8-15.2) gm/dl Hct (35.5-45.6) % MCV (84-94) fl MCH (28-32) pg MCHC (32-34) % RDW (13.2-15.2) % Plt Count (140-440) K/mm3 Lymph % (Auto) (13.4-35.0) % [place] % (Auto) (0.0-7.3) % Eos % (Auto) (0.0-4.3) % Baso % (Auto) (0.0-1.8) % Lymph # (Auto) (1.2-5.4) K/mm3 [place] # (Auto) (0.0-0.8) K/mm3 Eos # (Auto) (0.0-0.4) K/mm3 Baso # (Auto) (0.0-0.1) K/mm3 Seg Neutrophils % (40.0-70.0) % Seg Neutrophils # (1.8-7.7) K/mm3 Sodium (137-145) mmol/L Potassium (3.6-5.0) mmol/L Chloride (98-107) mmol/L Carbon Dioxide (22-30) mmol/L Anion Gap mmol/L BUN (9-20) mg/dL Creatinine (0.8-1.3) mg/dL Estimated GFR ml/min BUN/Creatinine Ratio % Glucose (75-100) mg/dL Calcium (8.4-10.2) mg/dL Total Bilirubin (0.1-1.2) mg/dL AST (5-40) units/L ALT (7-56) units/L Alkaline Phosphatase (35-129) units/L Total Protein (6.3-8.2) g/dL Albumin (3.9-5) g/dL Albumin/Globulin Ratio % Urine Color (Yellow) Urine Turbidity (Clear) Urine pH (5.0-7.0) Ur Specific [place] (1.003-1.030) Urine Protein (Negative) mg/dL Urine Glucose (UA) (Negative) mg/dL Urine Ketones (Negative) mg/dL Urine Blood (Negative) Urine Nitrite (Negative) Urine Bilirubin (Negative) Urine Urobilinogen (<2.0) mg/dL Ur Leukocyte Esterase (Negative) Urine WBC (Auto) (0.0-6.0) /HPF Urine RBC (Auto) (0.0-6.0) /HPF Urine Mucus /HPF Salicylates (2.8-20.0) mg/dL Urine Opiates Screen Presumptive negative Urine Methadone Screen Presumptive negative Acetaminophen (10.0-30.0) ug/mL Ur Barbiturates Screen Presumptive negative Ur Phencyclidine Scrn Presumptive negative Ur Amphetamines Screen Presumptive negative U Benzodiazepines Scrn Presumptive negative Urine Cocaine Screen Presumptive negative U Marijuana (THC) Screen Presumptive positive Drugs of Abuse Note Disclamer Plasma/Serum Alcohol (0-0.07) % - EKG Data -: EKG Interpreted by Me EKG shows normal: sinus rhythm, axis, intervals, QRS complexes, ST-T waves Rate: normal - EKG Data When compared to previous EKG there are: no significant change Interpretation: unchanged when compared t (04/04/20) - Medical Decision Making This patient presented to the emergency department with an ingestion of 2 marijuana cookies. At first the patient was confused, agitated and combative. We were able to redirect him and calm him down enough to get back to room #38. At this point the patient is still anxious and slightly confused, but is no longer combative. The patient was given some IV fluid resuscitation and a very low dose of Ativan. About 30 minutes later the patient is greatly improved. He is AAO x3, but is still intoxicated from the marijuana ingestion. The patient's labs have been unremarkable including CBC, metabolic panel, urinalysis, blood alcohol level, and the UDS is only positive for marijuana. His vital signs are reassuring including being afebrile. The patient will be discharged home to follow-up with primary care. We discussed avoiding any further marijuana or illicit drug use. Critical Care Time: No Critical care attestation.: If time is entered above; I have spent that time in minutes in the direct care of this critically ill patient, excluding procedure time. ED Disposition Clinical Impression: Overdose of marijuana Qualifiers: Encounter type: initial encounter Injury intent: accidental or unintentional Qualified Code(s): T40.7X1A - Poisoning by cannabis (derivatives), accidental (unintentional), initial encounter Disposition: DC-01 TO HOME OR SELFCARE Is pt being admited?: No Condition: Stable Instructions: Cannabis Use Disorder, What You Need to Know About Marijuana Use Additional Instructions: Please avoid ingestion or use of any further marijuana, or any other illicit drugs. Please follow-up with a primary care physician in the next few days. Return to the emergency department with any worsening of your symptoms, new or concerning symptoms not addressed during this current emergency department visit, or with any acute distress. Referrals: PRIMARY CAREMD [Primary Care Provider] - 2-3 Days Time of Disposition: 06:13
[2020-11-03 01:39] LABS: Basophils % (Auto) 0.6 % (0.0-1.8); Eosinophils % (Auto) 0.3 % (0.0-4.3); Hematocrit 43.6 % (35.5-45.6); Hemoglobin 14.4 gm/dl (11.8-15.2); Lymphocytes # (Auto) 1.5 K/mm3 (1.2-5.4); Lymphocytes % (Auto) 29.1 % (13.4-35.0); Mean Corpuscular HGB Conc 33 % (32-34); Mean Corpuscular Volume 88 fl (84-94); Monocytes # (Auto) 0.4 K/mm3 (0.0-0.8); Monocytes % (Auto) 8.2 % (0.0-7.3); Platelet Count 209 K/mm3 (140-440); Red Blood Count 4.97 M/mm3 (3.65-5.03); Red Cell Distribution Width 13.4 % (13.2-15.2)
[2020-11-03 02:00] LABS: Alanine Aminotransferase 12 units/L (7-56); Albumin 4.2 g/dL (3.9-5); BUN/Creatinine Ratio 15; Blood Urea Nitrogen 12 mg/dL (9-20); Calcium 8.5 mg/dL (8.4-10.2); Hemolysis Index 24
[2020-11-03 02:19] LABS: Bilirubin,Urine NEG (Negative); Blood,Urine NEG (Negative); Color,Urine Straw (Yellow); Mucus,Urine FEW /HPF; Protein,Urine <15 mg/dL mg/dL (Negative); RBC,Urine < 1.0 /HPF (0.0-6.0); Urobilinogen,Urine < 2.0 mg/dL (<2.0)
[2020-11-03 02:24] LABS: Amphetamine Screen,Urine PRESUMPTIVE NEGATIVE; Benzodiazepines Screen,Urine PRESUMPTIVE NEGATIVE; Cannabinoid Screen,Urine PRESUMPTIVE POSITIVE; Cocaine Screen,Urine PRESUMPTIVE NEGATIVE; Methadone Screen,Urine PRESUMPTIVE NEGATIVE; Opiate Screen,Urine PRESUMPTIVE NEGATIVE
[2020-11-03 06:17] VITALS: BP 102/66
== END 2020-11-03 07:35 | disposition home or self-care (01) ==
LOC: ED 00:43
DX: T40.7X1A Poisoning by cannabis (derivatives), accidental (unintentional), initial encounter (principal); Y92.89 Other specified places as the place of occurrence of the external cause; F41.9 Anxiety disorder, unspecified; F17.200 Nicotine dependence, unspecified, uncomplicated; Z79.899 Other long term (current) drug therapy
CPT/HCPCS: 36415; 80053; 80307; 81001; 85025; 93005; 96361; 96374; 99284; J2060; J7030; 80320; G0480

== ENCOUNTER 2021-04-13 19:43 | Emergency (ER) | payer OTHER ==
[2021-04-13 20:18] VITALS: BP 124/75
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
[2021-04-13] MEDS: IBUPROFEN 800 MG TAB PO ONE ×2 (21:16→21:17)
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
== END 2021-04-13 21:50 | disposition home or self-care (01) ==
LOC: ED 19:43
DX: M25.561 Pain in right knee (principal); M25.562 Pain in left knee; F41.9 Anxiety disorder, unspecified; Z79.899 Other long term (current) drug therapy; Z88.6 Allergy status to analgesic agent; V49.49XA Driver injured in collision with other motor vehicles in traffic accident, initial encounter; Y92.410 Unspecified street and highway as the place of occurrence of the external cause; Y93.89 Activity, other specified; Y99.8 Other external cause status

== ENCOUNTER 2021-11-21 03:03 | Emergency (ER) | payer OTHER ==
--- NOTE | 2021-11-21 04:59 | Emergency Department Report ---
ED General Adult HPI - General Chief complaint: Chest Pain Stated complaint: CHEST DISCOMFORT Source: patient Mode of arrival: Ambulatory Limitations: No Limitations - History of Present Illness Initial comments: 26-year-old male presents to the ED complaining of trouble sleeping ,anxiety ,chest discomfort x6 days. Patient states that he felt his heart racing when he was walking up a couple stairs and decided to come to the ER for further evaluation. He denies any nausea vomiting or diarrhea. Patient states that he has trouble sleeping at night and did not like to take pills. Patient states that he has appointment to see a primary care doctor in a week. Patient is alert and oriented x4. - Related Data Previous Rx's Medication Instructions Recorded Last Taken Type Azithromycin [Zithromax Z-AGNES] 250 mg PO DAILY #6 tab 11/02/13 Unknown Rx LORazepam [Ativan] 0.5 mg PO BID PRN #5 tab 09/19/14 Unknown Rx ALPRAZolam [Xanax TAB] 0.25 mg PO TID PRN #60 tab 09/25/14 Unknown Rx predniSONE [Deltasone] 20 mg PO QDAY #5 tab 01/18/15 Unknown Rx Cyclobenzaprine [Flexeril] 10 mg PO TID PRN #30 tablet 05/16/16 Unknown Rx traMADoL [Ultram] 50 mg PO Q6HR PRN #20 tablet 05/16/16 Unknown Rx Cyclobenzaprine HCl [Flexeril 5 MG 5 mg PO Q8HR PRN #10 tab 12/03/16 Unknown Rx TAB] Omeprazole Magnesium [PriLOSEC Otc] 20 mg PO QDAY #14 tablet.dr 12/03/16 Unknown Rx Cetirizine HCl [ZyrTEC] 10 mg PO QAM 15 Days #15 tab.rapdis 12/10/17 Unknown Rx Fluticasone [Flonase] 1 spray NS QDAY 15 Days #1 bottle 12/10/17 Unknown Rx Ibuprofen [Motrin 600 MG tab] 600 mg PO Q8H PRN #15 tablet 12/10/17 Unknown Rx Acyclovir [Zovirax] 400 mg PO TID #21 tablet 03/23/18 Unknown Rx EPINEPHrine [Epipen 2-Agnes] 0.3 mg IM PRN PRN #1 kit 10/21/18 Unknown Rx Metoclopramide [Reglan] 10 mg PO ACHS 7 Days #28 tablet 10/21/18 Unknown Rx diphenhydrAMINE [Benadryl CAP] 25 mg PO Q6HR 7 Days #28 capsule 10/21/18 Unknown Rx predniSONE [Deltasone] 40 mg PO QDAY 5 Days #10 tab 10/21/18 Unknown Rx hydrOXYzine HCL [Hydroxyzine HCl] 25 mg PO Q6H PRN #20 tablet 10/23/18 Unknown Rx Naproxen 500 mg PO BID PRN #20 tablet 04/13/21 Unknown Rx methOCARBAMOL [Robaxin TAB] 750 mg PO Q8H PRN #15 tablet 04/13/21 Unknown Rx Allergies Allergy/AdvReac Type Severity Reaction Status Date / Time ibuprofen [From Motrin] AdvReac Unknown Verified 11/21/21 03:34 ED Review of Systems ROS: Stated complaint: CHEST DISCOMFORT Other details as noted in HPI Constitutional: denies: chills, fever Eyes: denies: eye pain, eye discharge, vision change ENT: denies: ear pain, throat pain Respiratory: denies: cough, shortness of breath, wheezing Cardiovascular: denies: chest pain, palpitations Endocrine: no symptoms reported Gastrointestinal: denies: abdominal pain, nausea, diarrhea Genitourinary: denies: urgency, dysuria Musculoskeletal: denies: back pain, joint swelling, arthralgia Skin: denies: rash, lesions Neurological: denies: headache, weakness, paresthesias Psychiatric: anxiety. denies: depression Hematological/Lymphatic: denies: easy bleeding, easy bruising ED Past Medical Hx - Past Medical History Hx Hypertension: No Hx CVA: No Hx Heart Attack/AMI: No Hx Congestive Heart Failure: No Hx Diabetes: No Hx Deep Vein Thrombosis: No Hx Pulmonary Embolism: No Hx GERD: No Hx Liver Disease: No Hx Renal Disease: No Hx Sickle Cell Disease: No Hx Arthritis: No Hx Headaches / Migraines: No Hx Seizures: No Hx Kidney Stones: No Hx Psychiatric Treatment: Yes (anxiety, Panic Attack) Hx Asthma: No Hx COPD: No Hx Tuberculosis: No Hx Dementia: No Hx HIV: No Additional medical history: anxiety - Surgical History Hx Coronary Stent: No Hx Open Heart Surgery: No Hx Pacemaker: No Hx Internal Defibrillator: No Hx Cholecystectomy: No Hx Appendectomy: No Hx Breast Surgery: No - Social History Smoking Status: Never Smoker Substance Use Type: None - Medications Home Medications: Home Medications Medication Instructions Recorded Confirmed Last Taken Type Azithromycin [Zithromax Z-AGNES] 250 mg PO DAILY #6 tab 11/02/13 Unknown Rx LORazepam [Ativan] 0.5 mg PO BID PRN #5 tab 09/19/14 Unknown Rx ALPRAZolam [Xanax TAB] 0.25 mg PO TID PRN #60 tab 09/25/14 Unknown Rx predniSONE [Deltasone] 20 mg PO QDAY #5 tab 01/18/15 Unknown Rx Cyclobenzaprine [Flexeril] 10 mg PO TID PRN #30 tablet 05/16/16 Unknown Rx traMADoL [Ultram] 50 mg PO Q6HR PRN #20 tablet 05/16/16 Unknown Rx Cyclobenzaprine HCl [Flexeril 5 MG 5 mg PO Q8HR PRN #10 tab 12/03/16 Unknown Rx TAB] Omeprazole Magnesium [PriLOSEC Otc] 20 mg PO QDAY #14 tablet. 12/03/16 Unknown Rx Cetirizine HCl [ZyrTEC] 10 mg PO QAM 15 Days #15 tab.rapdis 12/10/17 Unknown Rx Fluticasone [Flonase] 1 spray NS QDAY 15 Days #1 bottle 12/10/17 Unknown Rx Ibuprofen [Motrin 600 MG tab] 600 mg PO Q8H PRN #15 tablet 12/10/17 Unknown Rx Acyclovir [Zovirax] 400 mg PO TID #21 tablet 03/23/18 Unknown Rx EPINEPHrine [Epipen 2-Agnes] 0.3 mg IM PRN PRN #1 kit 10/21/18 Unknown Rx Metoclopramide [Reglan] 10 mg PO ACHS 7 Days #28 tablet 10/21/18 Unknown Rx diphenhydrAMINE [Benadryl CAP] 25 mg PO Q6HR 7 Days #28 capsule 10/21/18 Unknown Rx predniSONE [Deltasone] 40 mg PO QDAY 5 Days #10 tab 10/21/18 Unknown Rx hydrOXYzine HCL [Hydroxyzine HCl] 25 mg PO Q6H PRN #20 tablet 10/23/18 Unknown Rx Naproxen 500 mg PO BID PRN #20 tablet 04/13/21 Unknown Rx methOCARBAMOL [Robaxin TAB] 750 mg PO Q8H PRN #15 tablet 04/13/21 Unknown Rx ED Physical Exam - General Limitations: No Limitations General appearance: alert, in no apparent distress - Head Head exam: Present: atraumatic, normocephalic - Eye Eye exam: Present: normal appearance - ENT ENT exam: Present: mucous membranes moist - Neck Neck exam: Present: normal inspection - Respiratory Respiratory exam: Present: normal lung sounds bilaterally. Absent: respiratory distress - Cardiovascular Cardiovascular Exam: Present: regular rate, normal rhythm. Absent: systolic murmur, diastolic murmur, rubs, gallop - GI/Abdominal GI/Abdominal exam: Present: soft, normal bowel sounds - Rectal Rectal exam: Present: deferred - Extremities Exam Extremities exam: Present: normal inspection - Back Exam Back exam: Present: normal inspection - Neurological Exam Neurological exam: Present: alert, oriented X3 - Psychiatric Psychiatric exam: Present: normal affect, normal mood - Skin Skin exam: Present: warm, dry, intact, normal color. Absent: rash ED Course Vital Signs 11/21/21 03:09 Temperature 98.6 F Pulse Rate 105 H Respiratory 17 Rate Blood Pressure 130/89 O2 Sat by Pulse 100 Oximetry ED Medical Decision Making - EKG Data 11/21/21 04:59 Sinus tachycardia 103, no ST elevation, no STEMI - Medical Decision Making 26-year-old male presents to the ED complaining of trouble sleeping ,anxiety ,chest discomfort x6 days. Patient states that he felt his heart racing when he was walking up a couple stairs and decided to come to the ER for further evaluation. He denies any nausea vomiting or diarrhea. Patient states that he has trouble sleeping at night and did not like to take pills. Patient states that he has appointment to see a primary care doctor in a week. Patient is alert and oriented x4. Patient has multiple visit related to similar complaints. Explained to patient to keep appointment with primary care doctor. Patient report of getting sleep. Patient denies any drug use. Discussed options for helping patient to sleep besides drug use and pills. Patient verbalized understanding. Patient is calm at discharge. Critical care attestation.: If time is entered above; I have spent that time in minutes in the direct care of this critically ill patient, excluding procedure time. ED Disposition Clinical Impression: Anxiety Disposition: HOME / SELF CARE / HOMELESS Is pt being admited?: No Does the pt Need Aspirin: No Condition: Stable Instructions: Managing Anxiety, Adult Additional Instructions: Keep appointment with primary care doctor Return to ED for any worsening symptoms May take [id number] Tylenol PM to help with sleep Forms: Work/School Release Form(ED)
[2021-11-21 06:06] VITALS: BP 116/73
--- NOTE | 2021-11-22 10:15 | Electrocardiograph Report ---
[facility] Test Date: 2021-11-21 Test Time: 03:12:15 Pat Name: MARÍA GARCIA Department: Room: Gender: M Developer Automatic: : 1995 Requested By: MAULIK RODRIGES Order Number: [id number] Reading MD: Hammad Lazo Measurements Intervals [place] Rate: 103 P: 77 PA: 147 QRS: 90 QRSD: 74 T: 70 QT: 327 QTc: 428 Interpretive Statements Sinus tachycardia Biatrial enlargement No previous ECG available for comparison Electronically Signed On 11-22-2021 10:14:52 EST by Hammad Lazo
== END 2021-11-21 05:50 | disposition home or self-care (01) ==
LOC: ED 03:03
DX: F41.9 Anxiety disorder, unspecified (principal); Z88.6 Allergy status to analgesic agent
CPT/HCPCS: 93005; 93010; 99282